=== PATIENT | male | born 2000 | race Hispanic/Latino ===

== ENCOUNTER 2020-04-08 18:26 | Emergency (ER) | payer OTHER, SELFPAY ==
[2020-04-08] MEDS ORDERED: ACETAMINOPHEN 500 MG TAB ONE (19:03)
--- NOTE | 2020-04-08 19:58 | EDPHYS ---
Physician Documentation [facility] Name: Mark Jensen Age: 19 yrs Sex: Male : 2000 Arrival Date: 04/08/2020 Time: 18:38 Bed Waiting Private MD: ED Physician Steven Rowell HPI: 04/08 19:35 This 19 yrs old Male presents to ER via Ambulatory with complaints of R/O kb COVID. 19:35 The patient or guardian reports difficulty breathing. Onset: The symptoms/episode kb began/occurred yesterday. Severity of symptoms: At their worst the symptoms were moderate, in the emergency department the symptoms are unchanged. Modifying factors: The symptoms are alleviated by nothing, the symptoms are aggravated by nothing. Associated signs and symptoms: Pertinent positives: diarrhea, Pertinent negatives: chest pain, ear ache, fever, nausea, rhinorrhea, sore throat, vomiting. The patient has not experienced similar symptoms in the past. The patient has not recently seen a physician. Pt states he came in to get tested for COVID because he has been around his uncle a lot and he is positive. Reports intermittent shortness of breath and diarrhea. Pt was unaware that he was running fever. Historical: - Allergies: 18:47 Amoxicillin; sv - PMHx: 18:47 None; sv - PSHx: 18:47 Tonsillectomy; sv - Immunization history:: Flu vaccine is not up to date. - Social history:: Smoking status: Patient denies any tobacco usage or history of. ROS: 19:35 Constitutional: Negative for fever, chills, and weight loss, Cardiovascular: Negative kb for chest pain, palpitations, and edema, Back: Negative for injury and pain, MS/Extremity: Negative for injury and deformity, Skin: Negative for injury, rash, and discoloration, Neuro: Negative for headache, weakness, numbness, tingling, and seizure. 19:35 Respiratory: Positive for shortness of breath, Negative for cough, dyspnea on exertion, hemoptysis, orthopnea, pleurisy, sputum production, wheezing. 19:35 Abdomen/GI: Positive for diarrhea. Exam: 19:35 Constitutional: This is a well developed, well nourished patient who is awake, alert, kb and in no acute distress. Head/Face: Normocephalic, atraumatic. Chest/axilla: Normal chest wall appearance and motion. Nontender with no deformity. No lesions are appreciated. Cardiovascular: Regular rate and rhythm with a normal S1 and S2. No gallops, murmurs, or rubs. Normal PMI, no JVD. No pulse deficits. Respiratory: Lungs have equal breath sounds bilaterally, clear to auscultation and percussion. No rales, rhonchi or wheezes noted. No increased work of breathing, no retractions or nasal flaring. Abdomen/GI: Soft, non-tender, with normal bowel sounds. No distension or tympany. No guarding or rebound. No evidence of tenderness throughout. Skin: Warm, dry with normal turgor. Normal color with no rashes, no lesions, and no evidence of cellulitis. MS/ Extremity: Pulses equal, no cyanosis. Neurovascular intact. Full, normal range of motion. Neuro: Awake and alert, GCS 15, oriented to person, place, time, and situation. Cranial nerves II-XII grossly intact. Motor strength 5/5 in all extremities. Sensory grossly intact. Cerebellar exam normal. Normal gait. Vital Signs: 18:45 BP 138 / 80; Pulse 94; Resp 20; Temp 101.4(TE); Pulse Ox 100% ; Weight 145.15 kg; sv Height 5 ft. 8 in. (172.72 cm); 18:45 Body Mass Index 48.66 (145.15 kg, 172.72 cm) sv MDM: 18:51 Patient medically screened. kb 19:34 Data reviewed: vital signs, nurses notes. Data interpreted: Pulse oximetry: on room air kb is 100 %. Interpretation: normal. Counseling: I had a detailed discussion with the patient and/or guardian regarding: the historical points, exam findings, and any diagnostic results supporting the discharge/admit diagnosis, lab results, the need for outpatient follow up, a family practitioner, to return to the emergency department if symptoms worsen or persist or if there are any questions or concerns that arise at home. 04/08 18:48 Order name: Flu sv 04/08 18:48 Order name: COVID-19 sv Administered Medications: 18:49 Drug: Tylenol 1000 mg Route: PO; sv Disposition: 04/08/20 19:57 Discharged to Home. Impression: Acute upper respiratory infection, unspecified. - Condition is Stable. - Discharge Instructions: Upper Respiratory Infection, Adult, [id number], COVID-19. - Work release form, Medication Reconciliation Form, Thank You Letter, Antibiotic Education, Prescription Opioid Use form. - Follow up: Emergency Department; When: As needed; Reason: Worsening of condition. Follow up: Private Physician; When: 2 - 3 days; Reason: Recheck today's complaints, Continuance of care, Re-evaluation by your physician. Addendum: 04/10/2020 07:13 Co-signature as Attending Physician, Steven Rowell MD. r n Signatures: Dispatcher [employer] EDDE Laverne Gomez, DOUBLE NEEDLE STITCHER-C VANDANA-Barbara Nunez, RN RN sv Steven Rowell MD MD agronomy internship: (The following items were deleted from the chart) 04/08 20:04 19:57 04/08/2020 19:57 Discharged to Home. Impression: Acute upper respiratory sv infection, unspecified. Condition is Stable. Forms are Medication Reconciliation Form, Thank You Letter, Antibiotic Education, Prescription Opioid Use. Follow up: Emergency Department; When: As needed; Reason: Worsening of condition. Follow up: Private Physician; When: 2 - 3 days; Reason: Recheck today's complaints, Continuance of care, Re-evaluation by your physician. kb
--- NOTE | 2020-04-08 19:58 | ER ---
Nurse's Notes [facility] Name: Mark Jensen Age: 19 yrs Sex: Male : 2000 Arrival Date: 04/08/2020 Time: 18:38 Bed Waiting Private MD: Diagnosis: Acute upper respiratory infection, unspecified Presentation: 04/08 18:45 Chief complaint: Patient states: "I wanted to get tested and my uncle tested positive sv for COVID." c/o SOB, diarrhea started this morning. Coronavirus screen: diarrhea, shortness of breath, Client presents with at least one sign or symptom that may indicate coronavirus-19. Standard/surgical mask placed on the client. Provider contacted for isolation considerations. Ebola Screen: No symptoms or risks identified at this time. Initial Sepsis Screen: Does the patient meet any 2 criteria? Temp <36.0*C (96.8*F)) or > 38.3*C (100.9*F). HR > 90 bpm. No. Patient's initial sepsis screen is negative. Does the patient have a suspected source of infection? No. Patient's initial sepsis screen is negative. Risk Assessment: Do you want to hurt yourself or someone else? Patient reports no desire to harm self or others. Onset of symptoms was April 08, 2020. 18:45 Method Of Arrival: Ambulatory sv 18:45 Acuity: CELIA 3 sv Triage Assessment: 18:45 General: Appears in no apparent distress. comfortable, Behavior is calm, cooperative, sv appropriate for age. Pain: Denies pain. Neuro: Level of Consciousness is awake, alert, obeys commands, Oriented to person, place, time, situation, Gait is steady. Respiratory: Reports shortness of breath. GI: Reports diarrhea. Historical: - Allergies: 18:47 Amoxicillin; sv - PMHx: 18:47 None; sv - PSHx: 18:47 Tonsillectomy; sv - Immunization history:: Flu vaccine is not up to date. - Social history:: Smoking status: Patient denies any tobacco usage or history of. Screenin:04 Abuse screen: Denies threats or abuse. Denies injuries from another. Nutritional sv screening: No deficits noted. Tuberculosis screening: No symptoms or risk factors identified. Fall Risk None identified. Assessment: 18:48 Reassessment: Ok by Laverne ATOMIC WELDER to order flu, COVID, and Tylenol. sv 20:04 Reassessment: Patient appears in no apparent distress at this time. No changes from sv previously documented assessment. Patient and/or family updated on plan of care and expected duration. Pain level reassessed. Patient is alert, oriented x 3, equal unlabored respirations, skin warm/dry/pink. Vital Signs: 18:45 BP 138 / 80; Pulse 94; Resp 20; Temp 101.4(TE); Pulse Ox 100% ; Weight 145.15 kg; sv Height 5 ft. 8 in. (172.72 cm); 18:45 Body Mass Index 48.66 (145.15 kg, 172.72 cm) sv ED Course: 18:38 Patient arrived in ED. ag5 18:45 Arm band placed on. sv 18:47 Triage completed. sv 18:50 Laverne Gomez [facility]C [facility]. kb 18:50 Steven Rowell MD is Attending Physician. kb 20:04 Patient has correct armband on for positive identification. sv 20:04 No provider procedures requiring assistance completed. Patient did not have IV access sv during this emergency room visit. Administered Medications: 18:49 Drug: Tylenol 1000 mg Route: PO; sv Outcome: 19:57 Discharge ordered by . kb 20:04 Discharged to home ambulatory. sv 20:04 Condition: stable 20:04 Discharge instructions given to patient, Instructed on discharge instructions, follow up and referral plans. Demonstrated understanding of instructions, follow-up care. 20:04 Patient left the ED. sv Signatures: Laverne Gomez FNP-C FNP-Ckb Verde, Stephanie, RN RN Rl Bliss ag5 Corrections: (The following items were deleted from the chart) 19:53 18:45 Pulse 94bpm; Resp 20bpm; Pulse Ox 100%; Temp 101.4F Temporal; 145.15 kg; Height 5 sv ft. 8 in.; BMI: 48.6; sv
[2020-04-09 03:27] VITALS: BP 138/80; TEMP 101.4; O2SAT 100
== END 2020-04-08 20:04 | disposition home or self-care (01) ==
LOC: ER 18:26
DX: U07.1 COVID-19 (principal); J06.9 Acute upper respiratory infection, unspecified; Z88.1 Allergy status to other antibiotic agents
CPT/HCPCS: 87804; 99283; U0002

== ENCOUNTER 2021-08-03 10:14 | Emergency (ER) | payer SELFPAY ==
--- NOTE | 2021-08-03 10:23 | EDPHYS ---
Physician Documentation [facility] Name: Mark Jensen Age: 20 yrs Sex: Male : 2000 Arrival Date: 08/03/2021 Time: 10:17 Bed Waiting Private MD: ED Physician Nate Gupta HPI: 08/03 10:24 This 20 yrs old Male presents to ER via Ambulatory with complaints of Cough. ms3 10:24 The patient or guardian reports cough, that is intermittent, with no sputum. Onset: The ms3 symptoms/episode began/occurred 3 day(s) ago. Modifying factors: The symptoms are alleviated by nothing, the symptoms are aggravated by nothing. Associated signs and symptoms: Pertinent positives: rhinorrhea, sore throat, Pertinent negatives: chest pain, fever, nausea. 20-year-old male with no past medical history presents for runny nose and cough that has been ongoing for 3 days. Patient endorses sore throat. Patient states his throat pain is a 4-5 over 10 and described as scratchy. Patient states he took an yvlw-qya-[id number] cough medication with mild improvement of his symptoms. Patient denies fevers, chills, nausea, vomiting, sick contacts.. Historical: - Home Meds: 10:24 None [Active]; ab2 - PMHx: 10:24 None; ab2 - PSHx: 10:24 None; ab2 - Immunization history:: Adult Immunizations up to date. - Social history:: Smoking status: Patient denies any tobacco usage or history of. ROS: 10:24 Constitutional: Negative for fever, and chills. Neck: Negative for injury, pain, and ms3 swelling, Cardiovascular: Negative for chest pain, and palpitations. Abdomen/GI: Negative for abdominal pain, nausea, vomiting, diarrhea, and constipation, Back: Negative for injury and pain, MS/Extremity: Negative for injury and deformity, Skin: Negative for injury, rash, and discoloration, Neuro: Negative for headache, weakness, numbness, tingling. 10:24 ENT: Positive for sore throat. 10:24 Respiratory: Positive for cough, with no reported sputum, Negative for shortness of breath. 10:24 All other systems are negative. Exam: 10:24 Constitutional: This is a well developed, well nourished patient who is awake, alert, ms3 and in no acute distress. Eyes: Pupils equal round and reactive to light, extra-ocular motions intact. Lids and lashes normal. Conjunctiva and sclera are non-icteric and not injected. Periorbital areas with no swelling, redness, or edema. Chest/axilla: Normal chest wall appearance and motion. Nontender with no deformity. Cardiovascular: Regular rate and rhythm with a normal S1 and S2. No gallops, murmurs, or rubs. Normal PMI, no JVD. No pulse deficits. Respiratory: Lungs have equal breath sounds bilaterally, clear to auscultation and percussion. No rales, rhonchi or wheezes noted. No increased work of breathing, no retractions or nasal flaring. Abdomen/GI: Soft, non-tender, with normal bowel sounds. No distension or tympany. No guarding or rebound. No evidence of tenderness throughout. Back: No spinal tenderness. No costovertebral tenderness. Full range of motion. Skin: Warm, dry with normal turgor. Normal color with no rashes, no lesions, and no evidence of cellulitis. MS/ Extremity: Pulses equal, no cyanosis. Neurovascular intact. Full, normal range of motion. Psych: Awake, alert, with orientation to person, place and time. Behavior, mood, and affect are within normal limits. Vital Signs: 10:22 BP 140 / 87; Pulse 77; Resp 18; Temp 98.6; Pulse Ox 98% ; Weight 147.42 kg; Height 5 ab2 ft. 8 in. (172.72 cm); Pain 5/10; 10:22 Body Mass Index 49.42 (147.42 kg, 172.72 cm) ab2 MDM: 10:22 Patient medically screened. ms3 10:24 Differential Diagnosis: Bronchitis Upper Respiratory Infection Allergic Rhinitis. Data ms3 reviewed: vital signs, nurses notes. Data interpreted: Pulse oximetry: on room air is 98 %. Counseling: I had a detailed discussion with the patient and/or guardian regarding: the historical points, exam findings, and any diagnostic results supporting the discharge/admit diagnosis, the need for outpatient follow up, to return to the emergency department if symptoms worsen or persist or if there are any questions or concerns that arise at home. ED course: Discussed physical exam findings with patient. Patient to follow-up with Dr. Shea in 2 to 3 days. Patient understands and agrees with plan. All questions were answered. Return precautions discussed include worsening symptoms, or any other concerns. . Administered Medications: No medications were administered Disposition Summary: 08/03/21 10:22 Discharge Ordered Location: Home ms3 Condition: Stable ms3 Diagnosis - Cough ms3 - Acute upper respiratory infection, unspecified ms3 Followup: ms3 - With: Brian Shea MD - When: 2 - 3 days - Reason: Recheck today's complaints Discharge Instructions: - Discharge Summary Sheet ms3 - Upper Respiratory Infection, Adult ms3 - Cough, Adult, [id number] ms3 Forms: - Medication Reconciliation Form ms3 - Thank You Letter ms3 - Antibiotic Education ms3 - Prescription Opioid Use ms3 - Work release form ab2 Prescriptions: - Tessalon Perles 100 mg Oral Capsule - take 1 capsule by ORAL route every 8 hours As needed; 15 capsule; Refills: 0, ms3 Product Selection Permitted Signatures: Nate Gupta DO DO ms3 Miguel Hudson ab2 Corrections: (The following items were deleted from the chart) 10:24 10:24 Allergies: Amoxicillin; ab2 ab2
--- NOTE | 2021-08-03 10:29 | ER ---
Nurse's Notes [facility] Name: Mark Jensen Age: 20 yrs Sex: Male : 2000 Arrival Date: 08/03/2021 Time: 10:17 Bed Waiting Private MD: Diagnosis: Cough;Acute upper respiratory infection, unspecified Presentation: 08/03 10:22 Chief complaint: Patient states: "I have had a cough and sore throat for approx 3 days. ab2 My work needs me to have something saying I can return to work.". Coronavirus screen: Vaccine status: Patient reports being unvaccinated. Client denies travel out of the [place] in the last 14 days. cough unrelated to allergies, sore throat, Client presents with at least one sign or symptom that may indicate coronavirus-19. Standard/surgical mask placed on the client. Provider contacted for isolation considerations. Ebola Screen: Patient negative for fever greater than or equal to 101.5 degrees Fahrenheit, and additional compatible Ebola Virus Disease symptoms Patient denies exposure to infectious person. Patient denies travel to an Ebola-affected area in the 21 days before illness onset. No symptoms or risks identified at this time. Initial Sepsis Screen: Does the patient meet any 2 criteria? No. Patient's initial sepsis screen is negative. Does the patient have a suspected source of infection? No. Patient's initial sepsis screen is negative. Risk Assessment: Do you want to hurt yourself or someone else? Patient reports no desire to harm self or others. Onset of symptoms is unknown. 10:22 Method Of Arrival: Ambulatory ab2 10:22 Acuity: CELIA 4 ab2 Triage Assessment: 10:24 General: Appears in no apparent distress. comfortable, Behavior is calm, cooperative, ab2 appropriate for age. Pain: Complains of pain in neck. EENT: Reports pain when swallowing. 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 Gait is unsteady. Cardiovascular: No deficits noted. Denies chest pain, shortness of breath, Heart tones S1 S2 present Patient's skin is warm and dry. Respiratory: Reports cough that is Airway is patent Respiratory effort is even, unlabored, Breath sounds are clear bilaterally. GI: No deficits noted. No signs and/or symptoms were reported involving the gastrointestinal system. Abdomen is round non-distended. : No deficits noted. No signs and/or symptoms were reported regarding the genitourinary system. Derm: No deficits noted. No signs and/or symptoms reported regarding the dermatologic system. Skin is intact, is healthy with good turgor, Skin is dry, Skin is pink, warm \\T\\ dry. Historical: - Home Meds: 10:24 None [Active]; ab2 - PMHx: 10:24 None; ab2 - PSHx: 10:24 None; ab2 - Immunization history:: Adult Immunizations up to date. - Social history:: Smoking status: Patient denies any tobacco usage or history of. Screenin:25 Abuse screen: Denies threats or abuse. Denies injuries from another. Nutritional ab2 screening: No deficits noted. Tuberculosis screening: No symptoms or risk factors identified. Fall Risk None identified. Vital Signs: 10:22 BP 140 / 87; Pulse 77; Resp 18; Temp 98.6; Pulse Ox 98% ; Weight 147.42 kg; Height 5 ab2 ft. 8 in. (172.72 cm); Pain 5/10; 10:22 Body Mass Index 49.42 (147.42 kg, 172.72 cm) ab2 ED Course: 10:17 Patient arrived in ED. kz 10:17 Nate Gupta DO is Attending Physician. ms3 10:22 Brian Shea MD is Referral Physician. ms3 10:24 Triage completed. ab2 10:25 Arm band placed on right wrist. ab2 10:26 Patient has correct armband on for positive identification. Bed in low position. ab2 10:26 No provider procedures requiring assistance completed. Patient did not have IV access ab2 during this emergency room visit. 10:28 Miguel Hudson is Primary Nurse. ab2 Administered Medications: No medications were administered Outcome: 10:22 Discharge ordered by . ms3 10:26 Discharged to home ambulatory. ab2 10:26 Condition: good 10:26 Discharge instructions given to patient, Instructed on discharge instructions, follow up and referral plans. medication usage, Demonstrated understanding of instructions, follow-up care, medications, Prescriptions given X 1. 10:28 Patient left the ED. ab2 Signatures: Nate Gupta DO DO ms3 Miguel Hudson ab2 Rhonda Kingsley Corrections: (The following items were deleted from the chart) 10:24 10:24 Allergies: Amoxicillin; ab2 ab2
[2021-08-03 11:05] VITALS: BP 140/87; TEMP 98.6; O2SAT 98
== END 2021-08-03 10:28 | disposition home or self-care (01) ==
LOC: ER 10:14
DX: J06.9 Acute upper respiratory infection, unspecified (principal)
CPT/HCPCS: 99282

== ENCOUNTER 2021-08-11 21:47 | Emergency (ER) | payer SELFPAY ==
--- NOTE | 2021-08-12 00:12 | EDPHYS ---
Physician Documentation [facility] Name: Mark Jensen Age: 20 yrs Sex: Male : 2000 Arrival Date: 08/11/2021 Time: 21:51 Bed 28 Private MD: SHLOMO Physician Cole Pack HPI: 08/12 00:08 This 20 yrs old Male presents to ER via Ambulatory with complaints of Shoulder jr8 Pain. 00:08 The patient or guardian complains of decreased range of motion, pain. right shoulder jr8 and right trapezius. Onset: The symptoms/episode began/occurred acutely, today. Modifying factors: the symptoms are alleviated by nothing. The symptoms are aggravated by movement. Associated signs and symptoms: The patient has no apparent associated signs or symptoms. Severity of symptoms: At their worst the symptoms were moderate, in the emergency department the symptoms are unchanged. The patient has not experienced similar symptoms in the past. The patient has not recently seen a physician. Patient stated that while at home tonight started to have an aching sharp pain to the right shoulder. Denies any trauma or recent injury. Stated that he does do a lot of movement and pulling at work but does not recall any injury while there. Denies any other symptoms at this time.. Historical: - Allergies: 08/11 22:08 No Known Allergies; ss7 - Home Meds: 22:08 None [Active]; ss7 - PMHx: 22:08 Asthma; ss7 - PSHx: 22:08 None; ss7 - Immunization history:: Adult Immunizations Client reports having NOT received the Covid vaccine. - Social history:: Smoking status: Patient denies any tobacco usage or history of. ROS: 08/12 00:08 Eyes: Negative for injury, pain, redness, and discharge, ENT: Negative for injury, jr8 pain, and discharge, Neck: Negative for injury, pain, and swelling, Cardiovascular: Negative for chest pain, palpitations, and edema, Respiratory: Negative for shortness of breath, cough, wheezing, and pleuritic chest pain, Abdomen/GI: Negative for abdominal pain, nausea, vomiting, diarrhea, and constipation, Back: Negative for injury and pain, Skin: Negative for injury, rash, and discoloration, Neuro: Negative for headache, weakness, numbness, tingling, and seizure. MS/extremity: Positive for pain, tenderness, of the right trapezius and right shoulder. Exam: 00:08 Constitutional: This is a well developed, well nourished patient who is awake, alert, jr8 and in no acute distress. Neck: Trachea midline, no thyromegaly or masses palpated, and no cervical lymphadenopathy. Supple, full range of motion without nuchal rigidity, or vertebral point tenderness. No Meningismus. Chest/axilla: Normal chest wall appearance and motion. Nontender with no deformity. No lesions are appreciated. Cardiovascular: Regular rate and rhythm with a normal S1 and S2. No gallops, murmurs, or rubs. Normal PMI, no JVD. No pulse deficits. Respiratory: Lungs have equal breath sounds bilaterally, clear to auscultation and percussion. No rales, rhonchi or wheezes noted. No increased work of breathing, no retractions or nasal flaring. Abdomen/GI: Soft, non-tender, with normal bowel sounds. No distension or tympany. No guarding or rebound. No evidence of tenderness throughout. Skin: Warm, dry with normal turgor. Normal color with no rashes, no lesions, and no evidence of cellulitis. Neuro: Awake and alert, GCS 15, oriented to person, place, time, and situation. Cranial nerves II-XII grossly intact. Motor strength 5/5 in all extremities. Sensory grossly intact. 00:08 Back: pain, that is moderate, of the right trapezius, ROM is normal, normal spinal alignment noted. 00:08 Musculoskeletal/extremity: Extremities: grossly normal except: noted in the right shoulder: pain, tenderness, to lateral shoulder , ROM: intact in all extremities, full active range of motion, full passive range of motion, limited active range of motion due to pain, limited passive range of motion due to pain, Circulation is intact in all extremities. Sensation intact. Vital Signs: 08/11 22:08 BP 134 / 84; Pulse 78; Resp 18; Temp 99.7; Pulse Ox 100% ; Weight 147.42 kg; Height 5 ss7 ft. 8 in. (172.72 cm); Pain 9/10; 08/12 00:42 BP 134 / 80 LA Sitting (auto/lg); Pulse 76 MON; Resp 16; Temp 98.0(O); Pulse Ox 98% on sv1 R/A; Pain 2/10; 08/11 22:08 Body Mass Index 49.42 (147.42 kg, 172.72 cm) ss7 MDM: 08/11 23:26 Patient medically screened. jr8 08/12 00:08 Data reviewed: vital signs, nurses notes, and as a result, I will discharge patient. jr8 Data interpreted: Pulse oximetry: on room air is 100 %. Interpretation: normal. Counseling: I had a detailed discussion with the patient and/or guardian regarding: the historical points, exam findings, and any diagnostic results supporting the discharge/admit diagnosis, the need for outpatient follow up, a family practitioner, to return to the emergency department if symptoms worsen or persist or if there are any questions or concerns that arise at home. ED course: Discussed with patient that there was no acute findings on physical exam. Does have mild pain with range of motion but no weakness. We will start him on anti-inflammatory and see how he does. If worse come back for further evaluation otherwise needs to follow-up with PCP. If pain persist after treatment needs to follow-up with orthopedics for further evaluation of possible rotator cuff injury.. Administered Medications: No medications were administered Disposition Summary: 08/12/21 00:11 Discharge Ordered Location: Home jr8 Problem: new jr8 Symptoms: have improved jr8 Condition: Stable jr8 Diagnosis - Pain in right shoulder jr8 Followup: jr8 - With: Saroj Childress MD - When: 7 - 10 days - Reason: Recheck today's complaints, Continuance of care, Re-evaluation by your physician Discharge Instructions: - Discharge Summary Sheet jr8 - Joint Pain jr8 - Shoulder Pain jr8 Forms: - Medication Reconciliation Form jr8 - Work release form lp1 - Thank You Letter jr8 - Antibiotic Education jr8 - Prescription Opioid Use jr8 Prescriptions: - meloxicam 15 mg Oral tablet - take 1 tablet by ORAL route once daily for 7 days; 7 tablet; Refills: 0, jr8 Product Selection Permitted Addendum: 08/13/2021 05:31 Co-signature as Attending Physician, Cole Pack MD I agree with the assessment and c campo plan of care. Signatures: Cole Pack MD MD cha Roszak, Josh, PA PA jr8 Ann Nolasco RN RN ss7
--- NOTE | 2021-08-12 00:12 | ER ---
Nurse's Notes [facility] Name: Mark Jensen Age: 20 yrs Sex: Male : 2000 Arrival Date: 08/11/2021 Time: 21:51 Bed 28 Private MD: Diagnosis: Pain in right shoulder Presentation: 08/11 22:07 Chief complaint: Patient states: Pt c/o right shoulder pain that began 2 hours ago. ss7 Denies any acute injury. Pain began after work today. 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 Coronavirus screen: Vaccine status: Patient reports being unvaccinated. Ebola Screen: No symptoms or risks identified at this time. Initial Sepsis Screen: Does the patient meet any 2 criteria? No. Patient's initial sepsis screen is negative. Does the patient have a suspected source of infection? No. Patient's initial sepsis screen is negative. Risk Assessment: Do you want to hurt yourself or someone else? Patient reports no desire to harm self or others. Onset of symptoms was August 11, 2021 at 18:30. 22:07 Method Of Arrival: Ambulatory ss7 22:07 Acuity: CELIA 4 ss7 Triage Assessment: 22:08 General: Appears uncomfortable, Behavior is calm, cooperative, appropriate for age. ss7 Pain: Complains of pain in right shoulder. Historical: - Allergies: 22:08 No Known Allergies; ss7 - Home Meds: 22:08 None [Active]; ss7 - PMHx: 22:08 Asthma; ss7 - PSHx: 22:08 None; ss7 - Immunization history:: Adult Immunizations Client reports having NOT received the Covid vaccine. - Social history:: Smoking status: Patient denies any tobacco usage or history of. Screenin:36 Abuse screen: Denies threats or abuse. Nutritional screening: No deficits noted. lr4 Tuberculosis screening: No symptoms or risk factors identified. Fall Risk None identified. Assessment: 23:36 General: Appears in no apparent distress. comfortable, Behavior is calm, cooperative. lr4 Pain: Complains of pain in R SHOULDER Pain does not radiate. Pain currently is 8 out of 10 on a pain scale. Quality of pain is described as TIGHT Pain began suddenly, 2 hours ago. Neuro: No deficits noted. Cardiovascular: No deficits noted. Respiratory: No deficits noted. Vital Signs: 22:08 BP 134 / 84; Pulse 78; Resp 18; Temp 99.7; Pulse Ox 100% ; Weight 147.42 kg; Height 5 ss7 ft. 8 in. (172.72 cm); Pain 9/10; 08/12 00:42 BP 134 / 80 LA Sitting (auto/lg); Pulse 76 MON; Resp 16; Temp 98.0(O); Pulse Ox 98% on sv1 R/A; Pain 2/10; 08/11 22:08 Body Mass Index 49.42 (147.42 kg, 172.72 cm) 7 ED Course: 08/11 21:51 Patient arrived in ED. ja2 22:08 Triage completed. ss7 22:08 Arm band placed on right wrist. ss7 23:26 Alfred Terrell PA is PHCP. jr8 23:26 Cole Pack MD is Attending Physician. jr8 23:36 Patient has correct armband on for positive identification. Bed in low position. Call lr4 light in reach. Side rails up X 1. Door closed. Noise minimized. 23:36 No provider procedures requiring assistance completed. lr4 23:55 Report given to saroj. lr4 08/12 00:00 Saroj Nichols, RN is Primary Nurse. sv1 00:11 Saroj Childress MD is Referral Physician. jr8 00:43 Patient did not have IV access during this emergency room visit. sv1 Administered Medications: No medications were administered Outcome: 08/11 23:36 Condition: stable lr4 08/12 00:11 Discharge ordered by . jr8 00:42 Discharge instructions given to patient. sv1 00:43 Discharged to home ambulatory. sv1 00:44 Patient left the ED. sv1 Signatures: Alfred Terrell PA PA jr8 Maliha Moore [facility] Saroj Nichols, RN RN sv1 Ann Nolasco RN RN ss7 Windy Tellez RN RN lr4
[2021-08-12 02:05] VITALS: BP 134/80; TEMP 98; O2SAT 98
== END 2021-08-12 00:44 | disposition home or self-care (01) ==
LOC: ER 21:47
DX: M25.511 Pain in right shoulder (principal)
CPT/HCPCS: 99281

== ENCOUNTER 2024-06-25 08:11 | Emergency (ER) | payer SELFPAY ==
[2024-06-25 09:12] LABS: SARS-CoV-2 Antigen CONTROL BLUE LINE VIS/BG OK; SARS-CoV-2 Antigen Rapid Res Negative (Negative)
--- NOTE | 2024-06-25 10:06 | ER ---
Nurse's Notes [facility] Name: Mark Jensen Age: 23 yrs Sex: Male : 2000 Arrival Date: 06/25/2024 Time: 08:11 Bed 12 Private MD: Diagnosis: Acute upper respiratory infection, unspecified Presentation: 06/25 08:23 Chief complaint: Patient states: Came home from a cruise Monday not feeling well. ll1 Sore throat, cough, and runny nose. Coronavirus screen: Client indicates they have traveled out of the [place] in the last 14 days. Client traveled to: [place] on cruise ship Client presents with at least one sign or symptom that may indicate coronavirus-19. Standard/surgical mask placed on the client. Ebola Screen: Patient denies travel to an Ebola-affected area in the 21 days before illness onset. Initial Sepsis Screen: Does the patient meet any 2 criteria? No. Patient's initial sepsis screen is negative. Does the patient have a suspected source of infection? No. Patient's initial sepsis screen is negative. Risk Assessment: Do you want to hurt yourself or someone else? Patient reports no desire to harm self or others. Onset of symptoms was June 22, 2024. 08:23 Method Of Arrival: Ambulatory ll1 08:23 Acuity: CELIA 4 ll1 Triage Assessment: 08:18 General: Appears uncomfortable, Behavior is calm, cooperative, appropriate for age, ll1 Reports chills for fever for feeling ill for fatigue for. EENT: Reports nasal discharge that is watery. Neuro: Reports headache. Respiratory: Reports cough that is. Historical: - Allergies: 08:18 amoxicillin; ll1 - Home Meds: 08:22 vitamins [Active]; ll1 - PMHx: 08:18 Asthma; ll1 - PSHx: 08:22 None; ll1 - Immunization history:: Adult Immunizations up to date. - Infectious Disease History:: Denies. - Social history:: Smoking status: Patient reports the use of cigarette tobacco products, smokes one-half pack cigarettes per day. - Family history:: not pertinent. Screenin:42 [facility] ED Fall Risk Assessment (Adult) History of falling in the last 3 months, ll1 including since admission No falls in past 3 months (0 pts) Confusion or Disorientation No (0 pts) Intoxicated or Sedated No (0 pts) Impaired Gait No (0 pts) Mobility Assist Device Used No (0 pt) Altered Elimination No (0 pt) Score/Fall Risk Level 0 - 2 = Low Risk Maintained a safe environment, Hourly rounding (assess needs \T\ fall precautionary measures) done. Abuse screen: Denies threats or abuse. Nutritional screening: No deficits noted. Tuberculosis screening: No symptoms or risk factors identified. Assessment: 08:43 Pain: Complains of pain in throat Quality of pain is described as aching. Respiratory: ll1 Airway is patent Trachea midline Respiratory effort is even, unlabored. EENT: Reports pain when swallowing. 10:12 Reassessment: No changes from previously documented assessment. Patient and/or family ll1 updated on plan of care and expected duration. Pain level reassessed. General:. 10:13 Respiratory: Breath sounds are clear bilaterally. EENT: Throat is clear. ll1 Vital Signs: 08:23 BP 137 / 97; Pulse 94; Resp 18; Temp 98.5; Pulse Ox 99% ; Weight 147.42 kg; Height 5 ll1 ft. 8 in. ; 10:11 BP 126 / 73; Pulse 81; Resp 17; Pulse Ox 99% on R/A; Pain 0/10; ll1 08:23 Body Mass Index 49.42 (147.42 kg, 172.72 cm) ll1 10:11 Pain Scale: Adult ll1 ED Course: 08:13 Patient arrived in ED. mr 08:18 Arm band placed on. ll1 08:25 Triage completed. ll1 08:31 Lemuel eVlasquez MD is Attending Physician. rt 08:43 Patient has correct armband on for positive identification. Provided Education on: ER ll1 procedures and process. 08:44 No provider procedures requiring assistance completed. ll1 08:53 Aleah Killian, LUZMA is Primary Nurse. ll1 10:38 Patient did not have IV access during this emergency room visit. ll1 Administered Medications: No medications were administered Medication: 08:43 VIS not applicable for this client. ll1 Outcome: 10:05 Discharge ordered by . rt 10:13 Patient left the ED. ll1 10:13 Discharged to home ambulatory, ll1 10:13 Condition: stable 10:13 Discharge instructions given to patient, Instructed on discharge instructions, follow up and referral plans. Demonstrated understanding of instructions, follow-up care, Signatures: Cora Mckeon, Reg Reg mr Aleah Killian, RN RN ll1 Lemuel Velasquez MD MD rt Corrections: (The following items were deleted from the chart) 10:38 10:37 Respiratory: Breath sounds are clear bilaterally. ll1 ll1
--- NOTE | 2024-06-25 10:06 | EDPHYS ---
Physician Documentation [facility] Name: Mark Jensen Age: 23 yrs Sex: Male : 2000 Arrival Date: 06/25/2024 Time: 08:11 Bed 12 Private MD: ED Physician Lemuel Velasquez HPI: 06/25 11:00 This 23 yrs old Male presents to ER via Ambulatory with complaints of Sore rt Throat, Dizziness. 11:00 Patient presents to the ED with 4 days of a sore throat, cough. The patient states that rt he recently finished a cruise started feeling sick on the cruise. Reported mild dizziness when he walked, none currently. Denies other acute complaints, symptoms are mild in severity, no other aggravating or alleviating factors.. Historical: - Allergies: 08:18 amoxicillin; ll1 - Home Meds: 08:22 vitamins [Active]; ll1 - PMHx: 08:18 Asthma; ll1 - PSHx: 08:22 None; ll1 - Immunization history:: Adult Immunizations up to date. - Infectious Disease History:: Denies. - Social history:: Smoking status: Patient reports the use of cigarette tobacco products, smokes one-half pack cigarettes per day. - Family history:: not pertinent. ROS: 11:00 Constitutional: Negative for fever, chills, and weight loss, Cardiovascular: Negative rt for chest pain, palpitations, and edema, Abdomen/GI: Negative for abdominal pain, nausea, vomiting, diarrhea, and constipation, MS/Extremity: Negative for injury and deformity, Skin: Negative for injury, rash, and discoloration, Neuro: Negative for headache, weakness, numbness, tingling, and seizure, 11:00 ENT: Positive for rhinorrhea, sore throat, 11:00 Respiratory: Positive for cough, Negative for shortness of breath, Exam: 11:00 Constitutional: This is a well developed, well nourished patient who is awake, alert, rt and in no acute distress. Head/Face: Normocephalic, atraumatic. Chest/axilla: Normal chest wall appearance and motion. Nontender with no deformity. No lesions are appreciated. Cardiovascular: Regular rate and rhythm with a normal S1 and S2. No gallops, murmurs, or rubs. Normal PMI, no JVD. No pulse deficits. Respiratory: Lungs have equal breath sounds bilaterally, clear to auscultation and percussion. No rales, rhonchi or wheezes noted. No increased work of breathing, no retractions or nasal flaring. Abdomen/GI: Soft, non-tender, with normal bowel sounds. No distension or tympany. No guarding or rebound. No evidence of tenderness throughout. Skin: Warm, dry with normal turgor. Normal color with no rashes, no lesions, and no evidence of cellulitis. MS/ Extremity: Pulses equal, no cyanosis. Neurovascular intact. Full, normal range of motion. 11:00 ENT: Mild posterior pharyngeal erythema without exudates, tonsillar hypertrophy. Vital Signs: 08:23 BP 137 / 97; Pulse 94; Resp 18; Temp 98.5; Pulse Ox 99% ; Weight 147.42 kg; Height 5 ll1 ft. 8 in. ; 10:11 BP 126 / 73; Pulse 81; Resp 17; Pulse Ox 99% on R/A; Pain 0/10; ll1 08:23 Body Mass Index 49.42 (147.42 kg, 172.72 cm) ll1 10:11 Pain Scale: Adult ll1 MDM: 08:45 Medical Screening Exam initiated rt 11:02 Differential diagnosis: Flu, upper respiratory infection, strep. Data reviewed: vital rt signs, nurses notes, lab test result(s). Test considered but Not performed: CT: No clinical signs to suggest RPA, JEWELRY DESIGNER, Maynor's angina, CT scan is not indicated. Counseling: I had a detailed discussion with the patient and/or guardian regarding the historical points, exam findings, and any diagnostic results supporting the discharge/admit diagnosis, lab results, the need for outpatient follow up. 06/25 08:29 Order name: Strep ll1 06/25 08:29 Order name: SARS RAPID; Complete Time: 10:00 ll1 06/25 08:29 Order name: Flu; Complete Time: 10:00 ll1 06/25 09:14 Order name: Throat Culture EDMS Administered Medications: No medications were administered Disposition Summary: 06/25/24 10:05 Discharge Ordered Notes: Location: Home rt Problem: new rt Symptoms: are unchanged rt Condition: Stable rt Diagnosis - Acute upper respiratory infection, unspecified rt Followup: rt - With: Private Physician - When: 2 - 3 days - Reason: Discharge Instructions: - Discharge Summary Sheet ll1 - Upper Respiratory Infection, Adult rt Forms: - Work release form ll1 - Medication Reconciliation Form rt - Antibiotic Education rt - Prescription Opioid Use rt - Patient Portal Instructions rt - Leadership Thank You Letter rt Signatures: Dispatcher [employer] Aleah Davila, RN RN ll1 Lemuel Velasquez MD MD rt Corrections: (The following items were deleted from the chart) 08:30 08:30 Group A Streptococcus Rapid Sc+BA.LAB.BRZ ordered. EDMS EDMS 08:30 08:30 SARS-COV-2 Antigen Rapid+I.LAB.BRZ ordered. EDMS EDMS 08:30 08:30 Influenza Screen (A \T\ B)+BA.LAB.BRZ ordered. EDMS EDMS
[2024-06-25 10:18] VITALS: BP 137/97; TEMP 98.5; O2SAT 99
== END 2024-06-25 10:13 | disposition home or self-care (01) ==
LOC: ER 08:11
DX: J06.9 Acute upper respiratory infection, unspecified (principal); Z11.52 Encounter for screening for COVID-19
CPT/HCPCS: 36415; 87070; 87081; 87804; 87811